=== PATIENT | male | born 1980 | race African-American/Black ===

== ENCOUNTER 2017-08-04 13:32 | Emergency (ER) | payer SELFPAY ==
--- NOTE | 2017-08-04 13:45 | ED Physician Chart ---
ED Chief Complaint/HPI - Patient Information Date Seen:: 08/04/17 Time Seen:: 13:35 Chief Complaint:: altered mental status History of Present Illness:: Patient was in [place] trying on clothes and became nonresponsive. 911 was called. Patient became verbally responsive to the paramedics but would not provide any personal information. I asked him if he had a place to stay and he said he did not want to discuss it. Allergies:: Allergies Allergy/AdvReac Type Severity Reaction Status Date / Time No Known Allergies Allergy Verified 08/04/17 13:34 Historian:: Patient, Other (paramedics) Review:: Nurse's Note Reviewed ED Review of Systems - Review of Systems General/Constitutional: No fever, No chills Skin: No skin lesions Head: No headache, No light-headedness Eyes: No loss of vision, No pain, No diplopia ENT: No earache, No nasal drainage, No tinnitus Neck: No neck pain, No swelling, No thyromegaly Cardio Vascular: No chest pain, No palpitations Pulmonary: No SOB, No cough GI: No nausea, No vomiting G/U: No dysuria Musculoskeletal: Bone or joint pain, Other (patient complains of constant chronic back pain) Endocrine: No polyuria, No polydipsia Psychiatric: No anxiety Allergic/Immuno: No urticaria, No angioedema Neurological: No syncope, No focal symptoms ED Past Medical History - Past Medical History Past Medical History: No significant medical hx Family History: None Social History: Smoker, Alcohol Surgical History: None Psychiatricy History: None Medication: None Family Medical History - Family Member Mother History Unknown: Yes ED Physical Exam - Physical Examination General/Constitutional: Well-developed, well-nourished, Alert, No distress Head: Atraumatic Eyes: Lids, conjuctiva normal, PERRL Skin: Nl inspection, No rash, No skin lesions, No ecchymosis ENMT: External ears, nose nl, Nasal exam nl, Lips, teeth, gums nl Neck: No nuchal rigidity Respiratory: Nl effort/Exclusion, Clear to Auscultation Cardio Vascular: No murmur, gallop, rubs, NL S1 S2 GI: No tenderness/rebounding/guarding, No organomegaly, No hernia : No CVA tenderness Extremities: No edema Neuro/Psych: Alert/oriented, No focal deficits Misc: No paraspinal tenderness ED Septic Shock - . Is Septic Shock (SBP<90, OR Lactate>4 mmol\L) present?: No ED Reassessment (Disposition) - Reassessment Reassessment:: Patient remained normally alert while in the emergency department. Reassessment Condition:: Improved - Diagnosis Diagnosis:: Altered mental status resolved - Aftercare/Follow up Instructions Aftercare/Follow-Up Instructions:: Refer to Discharge Instructions - Patient Disposition Discharge/Transfer:: Home Condition at Disposition:: Stable, Improved
== END 2017-08-04 14:30 | disposition home or self-care (01) ==
LOC: ER 13:32
DX: R41.82 Altered mental status, unspecified (principal)
CPT/HCPCS: Z7502